=== PATIENT | male | born 1980 | race Caucasian/White ===

== ENCOUNTER → 2016-08-29 | Outpatient (CLI) | payer BC | END | disposition home or self-care (01) | LOC: LABWHC1 11:10 | PROVIDERS: ATTEND Nurse Practitioner Family | DX: E04.2 Nontoxic multinodular goiter (principal) | CPT/HCPCS: 36415; 82024 ==

== ENCOUNTER → 2018-02-16 | Outpatient (CLI) | payer OTHER | END | disposition home or self-care (01) | LOC: LABWHC1 10:34 | PROVIDERS: ATTEND Nurse Practitioner | DX: D49.7 Neoplasm of unspecified behavior of endocrine glands and other parts of nervous system (principal) | CPT/HCPCS: 36415; 82040; 84270; 84403 ==

== ENCOUNTER → 2019-02-20 | Outpatient (CLI) | payer BC ==
[2019-02-20 17:45] LABS: T4, Free (Free Thyroxine) 1.1 ng/dL (0.80-1.80)
== END | disposition home or self-care (01) ==
LOC: LABWHC1 10:22
PROVIDERS: ATTEND Internal Medicine
DX: D49.7 Neoplasm of unspecified behavior of endocrine glands and other parts of nervous system (principal)
CPT/HCPCS: 36415; 84403; 84439

== ENCOUNTER 2019-04-08 08:31 | Emergency (ER) | payer BC ==
[2019-04-08] MEDS ORDERED: SODIUM CHLORIDE 0.9% 1,000 ML IV ONE (08:52)
[2019-04-08] MEDS ORDERED: ORPHENADRINE 30 MG/ML 2 ML VIAL IVP STA (08:52)
--- NOTE | 2019-04-08 09:00 | ED ---
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 He presents today with complaints of one week of bilateral hand and feet cramping sensation and pain. Patient states he has normal sensation distally. Patient states that he was seen at an urgent care yesterday was given IM Toradol. reports he went home and slept afterwards. Patient states that he has no history of diabetes or known history of neuropathy. 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 Patient states that he has had no associated fevers or chills. Denies any headache, or chest pain or abdominal pain. Patient states that he also had his thyroid medication adjusted and wonders if this relates to his cramping. - Related Data Home Medications Medication Instructions Recorded Confirmed Desmopressin Acetate [Ddavp] 0.1 mg PO DAILY 07/24/16 07/24/16 Diazepam [Valium] 10 mg PO HS PRN 07/24/16 07/24/16 Docusate [Colace] 100 mg PO BID 07/24/16 07/24/16 Fluticasone Nasal [place] [Flonase 1 spray EA NOSTRIL DAILY 07/24/16 07/24/16 Nasal [place]] Hydrocortisone [Cortef] 20 mg PO DAILY 07/24/16 07/24/16 Ibuprofen [Motrin] 600 mg PO DAILY PRN 07/24/16 07/24/16 Levothyroxine Sodium [Synthroid] 175 mcg PO DAILY 07/24/16 07/24/16 Testosterone [Androgel 1.62% Gel 2 pump TOPICAL DAILY 07/24/16 07/24/16 Pump] buPROPion HCL [Wellbutrin SR] 100 mg PO DAILY 07/24/16 07/24/16 Previous Rx's Medication Instructions Recorded Escitalopram [Lexapro] 20 mg PO DAILY 30 Days tab 07/25/16 Cyclobenzaprine [Flexeril] 10 mg PO TID #12 tab 04/08/19 Ibuprofen 600 mg PO TID #12 tablet 04/08/19 Allergies Allergy/AdvReac Type Severity Reaction Status Date / Time No Known Allergies Allergy Verified 04/08/19 08:35 Review of Systems ROS Statement: Those systems with pertinent positive or pertinent negative responses have been documented in the HPI. ROS Other: All systems not noted in ROS Statement are negative. 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 Mother Additional Family Medical History / Comment(s): Thyroid Cancer Brother(s) Additional Family Medical History / Comment(s): Skin Cancer General Exam - General Exam Comments Initial Comments: 38-year-old male. Alert and oriented 3. No distress. Limitations: no limitations General appearance: alert, in no apparent distress Head exam: Present: atraumatic, normocephalic, normal inspection Eye exam: Present: normal appearance, PERRL, EOMI. Absent: scleral icterus, conjunctival injection, periorbital swelling ENT exam: Present: normal exam, mucous membranes moist Neck exam: Present: normal inspection. Absent: tenderness, meningismus, lymphadenopathy Respiratory exam: Present: normal lung sounds bilaterally. Absent: respiratory distress, wheezes, rales, rhonchi, stridor Cardiovascular Exam: Present: regular rate, normal rhythm, normal heart sounds. Absent: systolic murmur, diastolic murmur, rubs, gallop, clicks GI/Abdominal exam: Present: soft, normal bowel sounds. Absent: distended, tende rness, guarding, rebound, rigid Extremities exam: Present: normal inspection Back exam: Present: normal inspection Neurological exam: Present: alert, oriented X3, CN II-XII intact Psychiatric exam: Present: normal affect, normal mood Skin exam: Present: warm, dry, intact, normal color. Absent: rash Course Vital Signs 04/08/19 04/08/19 04/08/19 08:33 09:30 10:00 Temperature 97.4 F L Pulse Rate 76 Respiratory 20 Rate Blood Pressure 141/93 133/101 135/91 O2 Sat by Pulse 99 97 95 Oximetry Medical Decision Making - Medical Decision Making 38-year-old male presents today for evaluation for cramping hands and feet for the past week. He has full range of motion. Normal sensation distally. Pulses are equal bilaterally. No overlying skin changes are noted. He does have no neurological deficits otherwise appears well. He has full strength. I discussed checking for electively abnormalities related to his cramping. His magnesium sodium potassium are unremarkable. CBC is unremarkable. He did have a low TSH but his free T4 is within normal limits. He is managed on Synthroid. I discussed that this time he does feel better after receiving some Toradol and Norflex. Discussed in attempt to use anti-inflammatory medication, stretching exercises for the hand cramping. Discussed the next step will be following up with his primary care doctor for possible further studies such as EMGs. Patient is agreeable to treatment plan will comply. Return parameters were discussed. - Lab Data Result diagrams: 04/08/19 08:57 04/08/19 08:57 Lab Results 04/08/19 04/08/19 Range/Units 08:57 08:57 WBC 4.9 (3.8-10.6) k/uL RBC 4.93 (4.30-5.90) m/uL Hgb 15.1 (13.0-17.5) gm/dL Hct 42.6 (39.0-53.0) % MCV 86.4 (80.0-100.0) fL MCH 30.7 (25.0-35.0) pg MCHC 35.5 (31.0-37.0) g/dL RDW 14.2 (11.5-15.5) % Plt Count 172 (150-450) k/uL Neutrophils % 66 % Lymphocytes % 24 % Monocytes % 6 % Eosinophils % 2 % Basophils % 0 % Neutrophils # 3.2 (1.3-7.7) k/uL Lymphocytes # 1.2 (1.0-4.8) k/uL Monocytes # 0.3 (0-1.0) k/uL Eosinophils # 0.1 (0-0.7) k/uL Basophils # 0.0 (0-0.2) k/uL Sodium 139 (137-145) mmol/L Potassium 4.6 (3.5-5.1) mmol/L Chloride 108 H (98-107) mmol/L Carbon Dioxide 21 L (22-30) mmol/L Anion Gap 10 mmol/L BUN 12 (9-20) mg/dL Creatinine 1.33 H (0.66-1.25) mg/dL Est GFR (CKD-EPI)AfAm 77 (>60 ml/min/1.73 sqM) Est GFR (CKD-EPI)NonAf 67 (>60 ml/min/1.73 sqM) Glucose 94 (74-99) mg/dL Calcium 9.4 (8.4-10.2) mg/dL Magnesium 2.1 (1.6-2.3) mg/dL TSH <0.015 L (0.465-4.680) mIU/L Free T4 1.46 (0.78-2.19) ng/dL Disposition Clinical Impression: Muscle spasm, Bilateral hand pain, Bilateral foot pain Disposition: HOME SELF-CARE Condition: Good Instructions (If sedation given, give patient instructions): Muscle Cramp (ED) Additional Instructions: Patient and take anti-inflammatory medication and muscle relaxer medications. Return to the emergency department if any alarming signs or symptoms occur. Prescriptions: Cyclobenzaprine [Flexeril] 10 mg PO TID #12 tab Ibuprofen 600 mg PO TID #12 tablet Is patient prescribed a controlled substance at d/c from ED?: No Referrals: Nonstaff,Physician [Primary Care Provider] - 1-2 days Faustino Ashford MD [STAFF PHYSICIAN] - 1-2 days Time of Disposition: 11:13
[2019-04-08] MEDS ORDERED: KETOROLAC 30 MG/ML 1 ML VIAL IVP STA (09:32)
[2019-04-08 09:39] LABS: Basophils % (A) 0 %; Eosinophils # (A) 0.1 k/uL (0-0.7); Eosinophils % (A) 2 %; HCT 42.6 % (39.0-53.0); HGB 15.1 gm/dL (13.0-17.5); Lymphocytes # (A) 1.2 k/uL (1.0-4.8); Lymphocytes % (A) 24 %; MCH 30.7 pg (25.0-35.0); MCHC 35.5 g/dL (31.0-37.0); MCV 86.4 fL (80.0-100.0); Mean Platelet Volume 7.9; Monocytes # (A) 0.3 k/uL (0-1.0); Monocytes % (A) 6 %; Neutrophils # (A) 3.2 k/uL (1.3-7.7); Neutrophils % (A) 66 %; Platelet Count 172 k/uL (150-450); RBC 4.93 m/uL (4.30-5.90); RDW 14.2 % (11.5-15.5); WBC 4.9 k/uL (3.8-10.6)
[2019-04-08 10:07] LABS: African American GFR (CKD) 77 (>60 ml/min/1.73 sqM); Anion Gap 10 mmol/L; Blood Urea Nitrogen 12 mg/dL (9-20); Calcium 9.4 mg/dL (8.4-10.2); Carbon Dioxide 21 mmol/L (22-30); Chloride 108 mmol/L (98-107); Glucose 94 mg/dL (74-99); Magnesium 2.1 mg/dL (1.6-2.3); Non-African American GFR(CKD) 67 (>60 ml/min/1.73 sqM); Potassium 4.6 mmol/L (3.5-5.1); Sodium 139 mmol/L (137-145)
[2019-04-08 11:08] LABS: T4, Free (Free Thyroxine) 1.46 ng/dL (0.78-2.19)
[2019-04-08 11:28] VITALS: BP 123/90; PULSE 62; RESP 18; TEMP 98.2
[2019-04-08] MEDS ORDERED: KETOROLAC 30 MG/ML 1 ML VIAL IVP SCH (12:00)
== END 2019-04-08 11:32 | disposition home or self-care (01) ==
LOC: EC 08:31
DX: R25.2 Cramp and spasm (principal); M79.641 Pain in right hand; M79.642 Pain in left hand; M79.671 Pain in right foot; M79.672 Pain in left foot; F41.9 Anxiety disorder, unspecified; F32.9 Major depressive disorder, single episode, unspecified; Z79.890 Hormone replacement therapy; Z79.51 Long term (current) use of inhaled steroids; Z79.899 Other long term (current) drug therapy; Z87.891 Personal history of nicotine dependence
CPT/HCPCS: 36415; 80048; 83735; 84439; 84443; 85025; 96361; 96374; 96375; 99283

== ENCOUNTER → 2020-06-26 | Outpatient (CLI) | payer BC ==
[2020-06-26 18:36] LABS: HGB 16.3 g/dL (13.0-17.0); MCHC 34.7 g/dL (32.0-37.0); MCV 89.4 fL (80.0-97.0); Mean Platelet Volume 10.9 fL (9.5-12.2); Platelet Count 219 X 10*3/uL (140-440); RBC 5.26 X 10*6/uL (4.40-5.60); WBC 6.08 X 10*3/uL (4.50-10.00)
[2020-06-26 20:11] LABS: T4, Free (Free Thyroxine) 1.4 ng/dL (0.80-1.80)
== END | disposition home or self-care (01) ==
LOC: LABWHC1 13:17
PROVIDERS: ATTEND Internal Medicine
DX: E23.0 Hypopituitarism (principal)
CPT/HCPCS: 36415; 84403; 84439; 85027

== ENCOUNTER → 2022-03-04 | Outpatient (CLI) | payer BC ==
--- NOTE | 2022-03-06 14:11 | MR ---
EXAMINATION TYPE: MR pituitary wo/w con DATE OF EXAM: 03/04/2022 COMPARISON: Outside MRI 2019 HISTORY: Follow up, pituitary adenoma, history of surgery 2016. TECHNIQUE: Multiplanar, multisequence images of the brain and brainstem is performed without and with IV contras t, utilizing 10 mL intravenous Gadavist . FINDINGS: AP widening of the sella turcica with inferior is redemonstrated indentation into the clivu s. Enhancing pituitary stalk sagittal image 10 is unchanged from prior study. Coronal images show mor e anterior heterogeneous enhancing oval circumscribed 7 x 6 x 9 mm area of sagittal image 10 and meg nal image 9 which is grossly unchanged from prior study and may correspond to the labeled enhancing f ocus on outside report. No obvious change from outside study. Suprasellar cistern is maintained. Craniocervical junction remains within normal limits. Midline structures are unremarkable. No gross h ydrocephalus. IMPRESSION: No significant change from outside MRI. Possible residual neoplasm and the level of sella turcica all appear unchanged from prior study.
== END | disposition home or self-care (01) ==
LOC: RADMRIMAIN 03-02 07:58
PROVIDERS: ATTEND Internal Medicine
DX: D35.2 Benign neoplasm of pituitary gland (principal); E23.0 Hypopituitarism
CPT/HCPCS: 70553; A9585

== ENCOUNTER → 2022-04-19 | Outpatient (CLI) | payer BC ==
[2022-04-19 15:37] LABS: Basophils # (A) 0.03 X 10*3/uL (0.00-0.10); Basophils % (A) 0.6 %; Eosinophils # (A) 0.06 X 10*3/uL (0.04-0.35); Eosinophils % (A) 1.3 %; HCT 43.4 % (39.6-50.0); HGB 15.7 g/dL (13.0-17.0); Immature Grans, Automated 0.2 %; Lymphocytes # (A) 1.23 X 10*3/uL (0.90-5.00); Lymphocytes % (A) 26.4 %; MCH 30.5 pg (27.0-32.0); MCHC 36.2 g/dL (32.0-37.0); MCV 84.3 fL (80.0-97.0); Mean Platelet Volume 10.4 fL (9.5-12.2); Monocytes # (A) 0.41 X 10*3/uL (0.20-1.00); Monocytes % (A) 8.8 %; NRBC Per 100 WBC 0 /100 WBCS (0.0-0.0); Neutrophils # (A) 2.92 X 10*3/uL (1.80-7.70); Neutrophils % (A) 62.7 %; Platelet Count 193 X 10*3/uL (140-440); RBC 5.15 X 10*6/uL (4.40-5.60); RDW 13.2 % (11.5-14.5); WBC 4.66 X 10*3/uL (4.50-10.00)
[2022-04-19 16:13] LABS: Prostate Specific Antigen 1.1 ng/mL (0.00-2.50); T4, Free (Free Thyroxine) 1.41 ng/dL (0.800-1.800)
== END | disposition home or self-care (01) ==
LOC: LABWHC1 09:29
PROVIDERS: ATTEND Internal Medicine
DX: E23.0 Hypopituitarism (principal); D35.2 Benign neoplasm of pituitary gland
CPT/HCPCS: 36415; 84153; 84403; 84439; 85025

== ENCOUNTER → 2023-02-07 | Outpatient (CLI) | payer BC ==
--- NOTE | 2023-02-08 07:49 | MR ---
EXAMINATION TYPE: MR pituitary wo/w con DATE OF EXAM: 02/07/2023 COMPARISON: Prior MRI pituitary March 04, 2022. HISTORY: Follow up, pituitary tumor removed 2015. TECHNIQUE: Multiplanar, multisequence images of the brain and brainstem is performed without and with IV contras t, utilizing 11 mL intravenous Gadavist . Pituitary gland protocol. FINDINGS: AP widening of the sella turcica with inferior extension and indentation into the clivus is redemonstrated. Enhancing slightly thickened pituitary stalk sagittal image 9 is unchanged from prio r study. Coronal images show persistent more anterior heterogeneous enhancing oval circumscribed 7 x 4 5 9 mm area on coronal image 11 and sagittal image 9 which is grossly unchanged from prior study. N o obvious change from outside study. Suprasellar cistern is maintained. Craniocervical junction remains within normal limits. Midline structures are unremarkable. No gross h ydrocephalus. IMPRESSION: No significant change from most recent prior MRI. Prior surgical change and Possible resi dual neoplasm at the level of sella turcica all appear unchanged from most recent prior study.
== END | disposition home or self-care (01) ==
LOC: RADMRIMAIN 07:22
DX: D49.7 Neoplasm of unspecified behavior of endocrine glands and other parts of nervous system (principal)
CPT/HCPCS: 70553; A9585